=== PATIENT | female | born 1985 | race Caucasian/White ===

== ENCOUNTER 2017-11-09 16:43 | Emergency (ER) | payer OTHER ==
[~2017-11-09] VITALS: Ht 157.5 cm; Wt 69.9 kg
[~2017-11-09 16:43] MED LIST: CALCIUM600 MG; CHROMIUM PICO200 MC1; CIPRO500 MG PO; KLOR-CON8 MEQ; LEVOTHYROXINE50 MCG; LIPITOR20 MG PO; MAGNESIUM250 MG; MOTRIN800 MG PO; PYRIDIUM200 MG PO; SIMVASTATIN40 MG; ULTRACET PO; VITACEL TABLET1 TAB; VITAMINE
== END 2017-11-09 23:00 | disposition home or self-care (01) ==
LOC: ER 16:43
DX: R10.84 Generalized abdominal pain (principal)

== ENCOUNTER 2017-11-11 13:05 | Outpatient (CLI) | payer OTHER | END 2017-11-11 16:53 | disposition home or self-care (01) | LOC: SONOGRAMA 13:05 | DX: N20.0 Calculus of kidney (principal) ==

== ENCOUNTER 2017-11-11 13:08 | Outpatient (CLI) | payer OTHER | END 2017-11-11 16:56 | disposition home or self-care (01) | LOC: RAD 13:08 | DX: N20.0 Calculus of kidney (principal) ==

== ENCOUNTER 2018-03-18 13:26 | Emergency (ER) | payer OTHER ==
[~2018-03-18] VITALS: Ht 157.5 cm; Wt 72.6 kg
== END 2018-03-18 15:55 | disposition home or self-care (01) ==
LOC: ER 13:26
DX: R20.0 Anesthesia of skin (principal); F06.4 Anxiety disorder due to known physiological condition

== ENCOUNTER 2018-03-19 07:22 | Outpatient (CLI) | payer OTHER | END 2018-03-19 08:01 | disposition home or self-care (01) | LOC: MRI 07:22 | DX: H53.8 Other visual disturbances (principal) | CPT/HCPCS: 70551 ==

== ENCOUNTER 2018-12-01 11:21 | Emergency (ER) | payer OTHER ==
[~2018-12-01] VITALS: Ht 157.5 cm; Wt 72.6 kg
[2018-12-01] MEDS ORDERED: ESCITALOPRAM OX10 MG PO (11:44)
== END 2018-12-01 15:29 | disposition home or self-care (01) ==
LOC: ER 11:21
DX: J11.1 Influenza due to unidentified influenza virus with other respiratory manifestations (principal)

== ENCOUNTER 2019-08-05 16:43 | Outpatient (CLI) | payer OTHER ==
[~2019-08-05 16:43] MED LIST changes: +ESCITALOPRAM OX10 MG PO
== END 2019-08-05 18:00 | disposition home or self-care (01) ==
LOC: LAB 16:43
DX: J11.1 Influenza due to unidentified influenza virus with other respiratory manifestations (principal)

== ENCOUNTER 2020-07-22 09:17 | Emergency (ER) | payer OTHER ==
[~2020-07-22] VITALS: Ht 157.5 cm; Wt 72.6 kg
[2020-07-22] MEDS ORDERED: CLONAZEPAM0.5 MG PO (09:31)
[2020-07-22] MEDS ORDERED: LEXAPRO5 MG (09:32)
== END 2020-07-22 14:23 | disposition home or self-care (01) ==
LOC: ER 09:17
DX: B34.9 Viral infection, unspecified (principal); Z03.818 Encounter for observation for suspected exposure to other biological agents ruled out

== ENCOUNTER 2020-08-09 16:47 | Emergency (ER) | payer OTHER ==
[~2020-08-09] VITALS: Ht 157.5 cm; Wt 72.6 kg
[~2020-08-09 16:47] MED LIST changes: +CLONAZEPAM0.5 MG PO; +LEXAPRO5 MG
== END 2020-08-09 19:27 | disposition home or self-care (01) ==
LOC: ER 16:47
DX: O03.6 Delayed or excessive hemorrhage following complete or unspecified spontaneous abortion (principal); Z3A.01 Less than 8 weeks gestation of pregnancy

== ENCOUNTER 2022-05-18 08:56 | Outpatient (CLI) | payer OTHER | END 2022-05-18 09:24 | disposition home or self-care (01) | LOC: MRI 08:56 | PROVIDERS: ATTEND General Practice | DX: R51.9 Headache, unspecified (principal); M54.2 Cervicalgia; E22.1 Hyperprolactinemia; N94.9 Unspecified condition associated with female genital organs and menstrual cycle | CPT/HCPCS: 70553 ==

== ENCOUNTER 2022-06-19 07:11 | Outpatient (CLI) | payer OTHER | END 2022-06-19 08:35 | disposition home or self-care (01) | LOC: NUCLEAR 07:11 | PROVIDERS: ATTEND Emergency Medicine | DX: M05.9 Rheumatoid arthritis with rheumatoid factor, unspecified (principal); E03.9 Hypothyroidism, unspecified; E55.9 Vitamin D deficiency, unspecified | CPT/HCPCS: 78315; A9503 ==

== ENCOUNTER → 2022-06-29 | Emergency (ER) | payer OTHER ==
[~2022-06-29] VITALS: Ht 157.5 cm; Wt 74.8 kg
[~2022-06-29] MED LIST changes: +DOXEPIN HCL10 MG PO; +NABUMETONE750 MG PO
== END | disposition home or self-care (01) ==
LOC: ER 03:33
DX: M77.8 Other enthesopathies, not elsewhere classified (principal); M79.641 Pain in right hand

== ENCOUNTER 2023-02-08 08:29 | Outpatient (CLI) | payer OTHER | END 2023-02-08 09:08 | disposition home or self-care (01) | LOC: SONOGRAMA 08:29 | DX: M65.842 Other synovitis and tenosynovitis, left hand (principal) ==

== ENCOUNTER 2023-10-09 07:42 | Outpatient (CLI) | payer OTHER | END 2023-10-09 07:48 | disposition home or self-care (01) | LOC: NUCLEAR 07:42 | PROVIDERS: ATTEND Internal Medicine | DX: C50.812 Malignant neoplasm of overlapping sites of left female breast (principal) ==

== ENCOUNTER → 2024-10-13 | Outpatient (CLI) | payer OTHER | END | disposition home or self-care (01) | LOC: NUCLEAR 08:00 | PROVIDERS: ATTEND Internal Medicine | DX: C50.812 Malignant neoplasm of overlapping sites of left female breast (principal) ==

== ENCOUNTER 2024-10-23 08:45 | Outpatient (CLI) | payer OTHER | END 2024-10-23 09:00 | disposition home or self-care (01) | LOC: RAD 08:45 | DX: K76.0 Fatty (change of) liver, not elsewhere classified (principal); M54.9 Dorsalgia, unspecified; R74.01 Elevation of levels of liver transaminase levels; R76.0 Raised antibody titer ==

== ENCOUNTER 2025-01-26 08:03 | Outpatient (CLI) | payer OTHER | END 2025-01-26 08:09 | disposition home or self-care (01) | LOC: SONOGRAMA 08:03 | DX: M77.8 Other enthesopathies, not elsewhere classified (principal); M06.4 Inflammatory polyarthropathy; M06.9 Rheumatoid arthritis, unspecified; M15.9 Polyosteoarthritis, unspecified ==

== ENCOUNTER 2025-02-15 09:02 | Outpatient (CLI) | payer OTHER | END 2025-02-15 09:11 | disposition home or self-care (01) | LOC: RAD 09:02 | PROVIDERS: ATTEND Internal Medicine | DX: M54.51 Vertebrogenic low back pain (principal) ==

== ENCOUNTER 2025-09-17 13:12 | Outpatient (CLI) | payer OTHER | END 2025-09-17 13:15 | disposition home or self-care (01) | LOC: SONOGRAMA 13:12 | PROVIDERS: ATTEND Internal Medicine | DX: C50.812 Malignant neoplasm of overlapping sites of left female breast (principal); C77.3 Secondary and unspecified malignant neoplasm of axilla and upper limb lymph nodes; Z17.0 Estrogen receptor positive status [ER+]; D70.1 Agranulocytosis secondary to cancer chemotherapy; Z79.811 Long term (current) use of aromatase inhibitors ==

== ENCOUNTER 2025-09-28 07:25 | Outpatient (CLI) | payer OTHER | END 2025-09-28 07:27 | disposition home or self-care (01) | LOC: NUCLEAR 07:25 | PROVIDERS: ATTEND Internal Medicine | DX: C50.812 Malignant neoplasm of overlapping sites of left female breast (principal) ==